=== PATIENT | female | born 1935 | race Caucasian/White ===

== ENCOUNTER → 2016-10-01 | Outpatient (CLI) | payer OTHER, MEDICARE ==
[~2016-10-01] VITALS: Ht 160 cm; Wt 69.3 kg
[~2016-10-01] MED LIST: ASPIRIN EC81 M1 PO; BYSTOLIC 5 MG5 M1 PO; CALCIUM 600 +1 EAC5 PO; CALCIUM PO; CELEBREX 200 M200 MG PO; CENTRUM COMPLE1 EACH PO; DIOVAN PO; DIOVAN40 MG PO; GLUCOPHAGE500 MG PO; HCTZ PO; HYDROCHLOROTH12.5 MG PO; ISOSORBIDE DINI30 MG PO; LEVOTHYROXIN0.025 MG PO; LORAZEPAM 0.50.5 MG PO; METAMUCIL PAC1 UDPK1 PO; MOBIC7.5 MG PO; MULTIVITAMINS PO; MYLANTA 12 OZ355 M1 PO; NORCO 7.5-3251 EACH PO; OMEGA-31000 MG PO; OMEPRAZOLE 20 M20 M1 PO; OMEPRAZOLE20 M2 PO; OXYCODONE-ACET1 EACH PO; OXYCONTIN10 MG PO; PREDNISONE 20 M20 M1 PO; PROAIR HFA8.5 GM; RANEXA500 MG PO; RECLAST 55 MG/100 M IV; SERTRALINE HCL50 MG PO; SINGULAIR 10 MG10 M1 PO; TRAMADOL 50 MG50 MG PO; VITAMIN D1000 UNI1 PO; ZOCOR 20 MG TAB20 M1 PO; ZOCOR20 MG PO; ZOLOFT50 MG PO
--- NOTE | ~2016-10-01 | HPC ---
[facility] [place] [address] PAIN MANAGEMENT CONSULTATION Name: MIGUELRACHEL LARA CARLA Room #: REG ANA ROSA Flores#: [id number] Admission: 10/01/16 Attend Phys: Sidney Brothers DO Discharge: Date of : 37 Report #: [id number] THIS REPORT FOR: //name// CC: Josseline Brothers The patient is a very pleasant 81-year-old female, last seen in the pain clinic 05/13/2016. The patient was given a caudal epidural injection at that time. She has symptomatic lumbar radiculopathy secondary to spinal stenosis. Prior injection in February given her 50% relief, last injection similarly gave the patient 50+ percent relief for 5 months, pain has gradually begun to recur, noting pain is in the mid back, bilateral hips, chronic, sharp, aching, rates it as a 7/10, exacerbated with walking or standing. PHYSICAL EXAMINATION: Shows a 81-year-old female, BMI is 27.1 kg/m2. Vital signs stable as noted in the EMR. Rises from chair using armrest, moderately antalgic gait. Lumbar flexion exacerbates pain. Lower extremity strength diminished, but symmetric. History of neurogenic claudication. Reviewed MRI findings from 08/21/2015, noting progression lumbar spondylosis since 2004, grade 1 subluxation of L4 on L5, [id number] stenosis with moderate right convex thoracolumbar curvature, small cyst noted at S2. ASSESSMENT: 1. 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 We talked about chronic pain issues and arthritic issues as well. The patient has pain with rotation of the left shoulder, passively and actively. Signs point to some degenerative joint disease in this level. We talked about possible shoulder joint injection if indicated clinically in 1 month. Recommend range of motion and core exercises. Continue medications unchanged including Meloxicam 7.5 one a day, tramadol p.r.n. for pain. 2. Symptomatic lumbar radiculopathy, status post decompressive laminectomy. PROCEDURE: Caudal epidural injection under fluoroscopy. PROCEDURE NOTE: After written informed consent was obtained, the patient was taken to the fluoroscopy suite and placed in prone position. After sterile prep and drape, skin wheal was raised. A 22-gauge epidural Tuohy needle was placed to the sacral hiatus into the caudal epidural space. Negative aspiration was accomplished. 1 mL of Omnipaque was injected, which showed spread within the sacral epidural space. This was followed with 80 mg of triamcinolone plus 5 mL of 0.5% preservative-free Xylocaine. Needle was removed, area was cleansed, [address] [address] PAIN MANAGEMENT CONSULTATION Name: RACHEL TORRES Room #: REG ANA ROSA Flroes#: [id number] Admission: 10/01/16 Attend Phys: Sidney Brothers DO Discharge: Date of : 37 Report #: [id number] Band-Aids applied. The patient was monitored for an appropriate period of time, discharged in good and stable condition. <ELECTRONICALLY SIGNED> By: Sidney Brothers DO 10/04/16 0917 1455 28 Sidney Brothers DO /nt
[2016-10-01 10:15] VITALS: BP 145/69
== END ==
LOC: PAIN 07:03
DX: M54.16 Radiculopathy, lumbar region (principal); M48.06 Spinal stenosis, lumbar region; M19.012 Primary osteoarthritis, left shoulder; M96.1 Postlaminectomy syndrome, not elsewhere classified

== ENCOUNTER → 2016-12-16 | Outpatient (CLI) | payer OTHER, MEDICARE ==
[~2016-12-16] VITALS: Ht 160 cm; Wt 69.4 kg
--- NOTE | ~2016-12-16 | HPC ---
[facility] [place] [place] [address] PAIN MANAGEMENT CONSULTATION Name: MIGUELRACHEL LARA CARLA Room #: REG Sea Flores#: [id number] Admission: 12/16/16 Attend Phys: Sidney Brothers DO Discharge: Date of : 37 Report #: [id number] THIS REPORT FOR: //name// CC: Josseilne Brothers HISTORY OF PRESENT ILLNESS: The patient is a very pleasant 81-year-old female being treated for component of lumbar radiculopathy secondary to spinal stenosis. She has prior been treated for some DJD of the left shoulder. She has done well with occasional caudal epidural injections; she had had a total of 3 caudal injections in 2015, September, February and April. She did have a caudal injection 10/01/2016 about 2-1/2 months ago, always with greater than 60% improvement of baseline radicular pain. Reviewed her MRI from 08/21/2015, notes progression of spondylosis from 2005 grade 1 subluxation of L4 and L5 with moderate to severe stenosis at this level, moderate right convex thoracolumbar curvature is seen. 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 She returns to pain clinic today noting pain has recurred, primarily low back, right buttock and leg. She uses a cane for balance. She notes pain is exacerbated with walking even sitting to do her quilting. PHYSICAL EXAMINATION: GENERAL: Shows a 81-year-old female, BMI is 27.1 kilograms per meter squared. Vital signs are stable as noted on the EMR. Does have objective decreased strength in the right leg, the hip flexion, lower extremity extension even plantar flexion about 3/5, left leg is a little bit stronger at 4/5. ASSESSMENT: Symptomatic lumbar radiculopathy secondary to spinal stenosis in a patient with prior history of left shoulder DJD, though the range of motion is actually improving a little bit here. We elected to do repeat caudal injection under fluoroscopy today. Continue activity as able. Continue using cane for balance, rare tramadol for pain. ASSESSMENT: Symptomatic lumbar radiculopathy secondary to spinal stenosis. PROCEDURE NOTE: Caudal epidural injection under fluoroscopy. PROCEDURE: After written informed consent was obtained, the patient taken to fluoroscopy suite, placed in the prone position. After sterile prep and drape, skin wheal was raised. A 22-gauge stylet needle was placed through the sacral hiatus into the caudal epidural space. Negative aspiration was accomplished. A 1 mL of Omnipaque was injected, which showed spread within the caudal space. This was followed with 80 mg triamcinolone plus 4 mL of 0.5% preservative-free lidocaine. Needle was removed. The area was cleansed, Band-Aids applied. The [address] [address] PAIN MANAGEMENT CONSULTATION Name: RACHEL TORRES CARLA Room #: REG CLSea Flores#: [id number] Admission: 12/16/16 Attend Phys: Sidney Brothers DO Discharge: Date of : 37 Report #: [id number] patient was allowed to ambulate to recovery room, monitored for an appropriate period of time, discharged in good and stable condition. <ELECTRONICALLY SIGNED> By: Sidney Brothers DO 12/17/16 1138 0708 1025 Sidney Brothers DO /nt
[2016-12-16 13:46] VITALS: BP 155/62
== END ==
LOC: PAIN 07:13
DX: M54.16 Radiculopathy, lumbar region (principal); M48.06 Spinal stenosis, lumbar region; M19.012 Primary osteoarthritis, left shoulder; I10 Essential (primary) hypertension

== ENCOUNTER → 2017-03-14 | Outpatient (CLI) | payer OTHER, MEDICARE ==
[~2017-03-14] VITALS: Ht 160 cm; Wt 71.3 kg
--- NOTE | ~2017-03-14 | HPC ---
[facility] [address] [place] [address] PAIN MANAGEMENT CONSULTATION Name: RACHEL TORRES Room #: REG ANA ROSA Flores#: [id number] Admission: 03/14/17 Attend Phys: Sidney Brothers DO Discharge: Date of : 37 Report #: [id number] THIS REPORT FOR: //name// CC: Josseline Brothers DATE OF SERVICE: 03/14/2017 The patient is a very pleasant 81-year-old female typically treated for lumbar radiculopathy secondary to spinal stenosis, component of DJD, left shoulder. She uses tramadol 50 mg 0-4 a day. She has done well with occasional caudal epidural injections, last one being in November of this year. This afforded some 100% relief for 2 months. Gradually, pain has begun to recur. She denies antecedent trauma and overuse. She notes 3 weeks ago, she did fall putting away some winter sweaters. She states around the home, she typically uses a cane. We talked about balance exercises today and I showed her some exercises she can do at counter today. She did have a small laceration in the anterior right abdul. This appears to be well dressed and no signs of infection. Ongoing back and radicular pain. Lumbar flexion is limited. Positive straight leg raise bilaterally. ASSESSMENT: Symptomatic lumbar radiculopathy secondary to spinal stenosis in patient with facet degenerative changes and anterolisthesis at L4-L5 causing stenosis down to about 0.71 cm. She has done well with caudal epidural injections in the past for chronic pain concerns. RECOMMENDATIONS: 1. Balance exercises as discussed above. 2. Renew tramadol 50 mg 1 tablet up to 4 times a day, limit 120 tablets, 2 refills. 3. Caudal epidural injection under fluoroscopy today. PROCEDURE NOTE: After written informed consent was obtained, the patient was taken to the fluoroscopy suite and placed in prone position. After sterile prep and drape, skin wheal with Xylocaine was raised. A 22-gauge stylet needle was placed to the sacral hiatus in the caudal epidural space. Negative aspiration was accomplished. 1 mL of Omnipaque was injected, which showed spread within the sacral space. This was followed with 60 mg triamcinolone plus 4 mL of 0.5% preservative-free Xylocaine. Needle was removed. The area was cleansed, Band-Aids applied. The patient monitored for an appropriate period of time, discharged in good and stable condition. <ELECTRONICALLY SIGNED> By: Sidney Brothers DO 03/18/17 1606 1549 11 Sidney Brothers DO /nt
[2017-03-14 13:34] VITALS: BP 140/63
== END | disposition home or self-care (01) ==
LOC: PAIN 06:56
DX: M54.16 Radiculopathy, lumbar region (principal); M48.06 Spinal stenosis, lumbar region; M19.012 Primary osteoarthritis, left shoulder; M43.16 Spondylolisthesis, lumbar region

== ENCOUNTER → 2017-04-29 | Outpatient (CLI) | payer OTHER, MEDICARE ==
[~2017-04-29] VITALS: Ht 160 cm; Wt 69.9 kg
--- NOTE | ~2017-04-29 | HPC ---
[facility] [place] [address] [place] [address] PAIN MANAGEMENT CONSULTATION Name: RACHEL TORRESAINE Room #: REG ANA ROSA Flores#: [id number] Admission: 04/29/17 Attend Phys: Sidney Brothers DO Discharge: Date of : 37 Report #: [id number] THIS REPORT FOR: //name// CC: Josseline Brothers DATE OF SERVICE: 04/29/2017 The patient is a 81-year-old female typically treated for lumbar radiculopathy secondary to spinal stenosis, history of DJD of the left shoulder. Last seen in the pain clinic 03/14/2017. Did a caudal epidural injection at that time. Prior had done a caudal injection back in November. She has done well with occasional caudal injections for lumbar radicular symptoms, primarily right radicular. She uses tramadol on a p.r.n. basis. Returns to pain clinic today noting the last injection afforded relief, though not as good as she usually gets, this time only about 60%. She does note an acute change in symptoms with pain primarily in the right low back and buttock area. She has been using a cane for balance. She rises from a chair using the armrest, markedly antalgic gait. Very tender over the right SI. Lower extremity strength is generally symmetric, though diminished 3-4/5, but again equal bilaterally. Straight leg raise is negative. Patellar and Achilles reflexes are diminished, but preserved. Very tender over the right SI with a positive Brian test, positive Gaenslen test. ASSESSMENT: Symptomatic sacroiliac joint dysfunction by clinical exam today, history of lumbar radiculopathy secondary to spinal stenosis and degenerative joint disease, left shoulder. RECOMMENDATIONS: 1. Continue tramadol p.r.n., the patient does not require renewal of prescription. 2. Right SI joint injection under fluoroscopy today. 3. Follow up in 1 week for reevaluation and consideration for repeat caudal injection if radicular symptoms are problematic at that time. Thank you for allowing me to participate in the patient's care. ASSESSMENT: Symptomatic right sacroiliac joint dysfunction, lumbosacral spondylosis. PROCEDURE: After written informed consent was obtained, the patient was taken to the fluoroscopy suite and placed in prone position. After sterile prep and drape, skin wheal was raised. A 22-gauge stylet needle was placed to contact the inferior aspect of the right SI joint. Negative aspiration was accomplished. 0.5 mL of Omnipaque was injected, which [place] [address] PAIN MANAGEMENT CONSULTATION Name: RACHEL TORRES CARLA Room #: REG Sae Flores#: [id number] Admission: 04/29/17 Attend Phys: Sidney Brothers DO Discharge: Date of : 37 Report #: [id number] joints followed with 40 mg triamcinolone plus 2 mL of 0.5% preservative-free bupivacaine. Needle was removed, area was cleansed, Band-Aids applied. The patient monitored for an appropriate period of time, discharged in good and stable condition. <ELECTRONICALLY SIGNED> By: Sidney Brothers DO 05/02/17 0908 0952 1033 Sidney Brothers DO /nt
[2017-04-29 09:19] VITALS: BP 137/61
== END | disposition home or self-care (01) ==
LOC: PAIN 07:13
DX: M53.3 Sacrococcygeal disorders, not elsewhere classified (principal); M54.16 Radiculopathy, lumbar region; M48.06 Spinal stenosis, lumbar region; M19.012 Primary osteoarthritis, left shoulder; M47.817 Spondylosis without myelopathy or radiculopathy, lumbosacral region

== ENCOUNTER → 2017-05-30 | Outpatient (CLI) | payer OTHER, MEDICARE ==
[~2017-05-30] VITALS: Ht 160 cm; Wt 68.4 kg
[~2017-05-30] MED LIST changes: +TIZANIDINE HCL 22 M1 PO
--- NOTE | ~2017-05-30 | HPC ---
[facility] [address] [place] [address] PAIN MANAGEMENT CONSULTATION Name: MIGUELRACHEL LARA CARLA Room #: REG ANA ROSA Flores#: [id number] Admission: 05/30/17 Attend Phys: Sidney Brothers DO Discharge: Date of : 37 Report #: [id number] THIS REPORT FOR: //name// CC: Josseline Brothers HISTORY OF PRESENT ILLNESS: The patient is a very pleasant 82-year-old female typically treated for lumbar radiculopathy secondary to spinal stenosis, component of SI mediated pain, in fact last visit, we did a right SI joint injection 04/29/2017. She prior had a caudal injection back in February. Returns to pain clinic today noting the SI injection afforded good and ongoing relief upto 80%. She actually presents today with a new complaint. The patient notes she has developed pain in the right side of her neck. It is not related to trauma or specific use. Pain actually has been present for many years, but seems to be getting worse the past several weeks, pain in the right side of the neck, posterior occiput in the shoulder. Exacerbated with moving her head or turning her head to the right. She had tried ice and medications with partial efficacy. Again, she notes the axial back chronic lumbar radicular pain and right SI mediated pain are fairly nominal at this point. Rates her overall pain score of 4 on VAS. PHYSICAL EXAMINATION: GENERAL: Shows 82-year-old female. VITAL SIGNS: BMI is 26.7 kg per meter squared. Stable as noted in the EMR. NEUROLOGIC: Cranial nerves 2-12 are grossly intact. HEENT: Pupils equal, reactive to light and accommodation. Extraocular muscles are intact. There is no nystagmus. Lateral gaze deviation. NECK: Cervical range of motion is limited in all plains specifically sidebending and rotating to the right. Thyroid unremarkable. MUSCULOSKELETAL: Upper extremity strength is generally preserved right abduction exacerbates pain. Trigger point noted in the right splenius capitis, right trapezius, right posterior occipital area and upper thoracic paravertebral muscles. ASSESSMENT: 1. Lumbar radiculopathy secondary to spinal stenosis and the right SI mediated pain all symptoms relatively quiescent at present. 2. New complaint of myofascial pain component of greater occipital neuralgia. RECOMMENDATION: Trigger points today, ice to the area. The patient had prior been to physical therapy for range of motion exercises request that she resume those exercises later this week. Follow up in 2 to 3 weeks for reevaluation. Consider facet joint injection if indicated clinically (right C2-C3). [place] [address] PAIN MANAGEMENT CONSULTATION Name: MIGUELRACHEL LARA CARLA Room #: REG Sea Flores#: [id number] Admission: 05/30/17 Attend Phys: Sidney Brothers DO Discharge: Date of : 37 Report #: [id number] PROCEDURE: After written informed consent was obtained, the patient was taken and placed in the prone position. Skin overlying 4 discrete trigger points (right trapezius, right upper thoracic paravertebral muscles, right splenius capitis and inferior posterior occipital over the greater occipital nerve were identified). Using a 25-gauge needle, 40 mg triamcinolone plus 50:50 mix of 5 mL 0.5% preservative-free bupivacaine plus 5 mL of 1.5% preservative-free Xylocaine with 1:200,000 epinephrine was injected equivalent to 4 discrete trigger points. All needles removed. The area was cleansed, Band-Aids applied. The patient was told to use ice to the area today. Again, resume range of motion, physical therapy midweek. Follow up in 2 to 3 weeks for reevaluation. Cancel if doing well. <ELECTRONICALLY SIGNED> By: Sidney Brothers DO 06/01/17 0811 1226 0150 Sidney Brothers DO /nt
[2017-05-30 10:36] VITALS: BP 142/76
== END | disposition home or self-care (01) ==
LOC: PAIN 05-12 12:59
DX: M79.1 Myalgia (principal); M54.81 Occipital neuralgia; G89.29 Other chronic pain; M54.16 Radiculopathy, lumbar region; M48.06 Spinal stenosis, lumbar region; M53.3 Sacrococcygeal disorders, not elsewhere classified; Z88.0 Allergy status to penicillin; Z79.82 Long term (current) use of aspirin; Z79.899 Other long term (current) drug therapy

== ENCOUNTER → 2017-10-17 | Outpatient (CLI) | payer OTHER, MEDICARE ==
[~2017-10-17] VITALS: Ht 160 cm; Wt 66.2 kg
[~2017-10-17] MED LIST changes: +LOSARTAN POTASS50 MG PO; +NORVASC5 MG PO; +VOLTAREN GEL 1100 G1 TOP
--- NOTE | ~2017-10-17 | HPC ---
[facility] [address] [place] [address] PAIN MANAGEMENT CONSULTATION Name: MIGUELRACHEL LARA CARLA Room #: REG ANA ROSA Flores#: [id number] Admission: 10/17/17 Attend Phys: Sidney Brothers DO Discharge: Date of : 37 Report #: [id number] THIS REPORT FOR: //name// CC: Josseline Brothers The patient is a delightful 82-year-old female. She was prior seen back in July. She had ongoing cervical spondylosis, greater occipital neuralgia and component of axial back pain. I had given her a right C2-C3, C3-C4, C4-C5 as well as a left C2-C3 facet joint injection with excellent improvement of pain for a number of weeks. Pain began to recur. In the interval since I saw her, she got very sick over the holidays and was found to have acute diverticulitis. I had a diverting colostomy (planning on reversing this on 11/24/2017). Returns to pain clinic today noting her neck tends to be problematic. She rates her pain a 7 on a VAS. She has degenerative facet disease, but no true arthritis. BMI is 25.9 kg/m2. Vital signs are generally stable. She has not fallen in the last 3 months. Does use a cane. Denies opiate medications with any regularity. Tenderness in the cervical spine is somewhat frustrated and depressed by return of events with the GI issues. She is looking forward to having her ostomy reversed. With ongoing pain in her neck, she states she simply cannot sleep as it is uncomfortable and is getting quite frustrated. PHYSICAL EXAMINATION: Being unchanged. DIAGNOSES: Cervical spondylosis. We have elected to move forward with repeat cervical facet joint injection under fluoroscopy today. We will plan on seeing the patient back sometime after her colostomy reversal. We may consider medial branch dorsal rami diagnostic block and RFL, but today, we are simply trying to mitigate pain and to give the patient some comfort pending her ostomy reversal. ASSESSMENT: Symptomatic cervical spondylosis. PROCEDURE: Four level facet joint injection under fluoroscopy (left and right C2-C3, right C3-C4 and C4-C5). PROCEDURE NOTE: After informed consent was obtained, the patient was taken to the fluoroscopy suite and placed in prone position. After sterile prep and drape, skin was raised. A 22-gauge stylet needle was placed to contact the posterior aspect of the left C2-C3 and a right C2-C3. In the middle of the lateral mass, third and fourth needles were placed corresponding to the right C3-C4 and right C4-C5 again in the middle of the lateral mass. AP and lateral projections showed good needle placement approximately in the posterior aspect of the facet joint. After negative aspiration, 1 mg of Decadron plus 1 mL of 0.5% preservative-free bupivacaine was injected at all 4 needles. All 4 needles were removed. The area was cleansed. Band-Aids applied[place] [address] PAIN MANAGEMENT CONSULTATION Name: RACHEL TORRES Room #: REG ANA ROSA Flores#: [id number] Admission: 10/17/17 Attend Phys: Sidney Brothers DO Discharge: Date of : 37 Report #: [id number] monitored for an appropriate period of time, discharged in good and stable condition. Follow up is p.r.n. <ELECTRONICALLY SIGNED> By: Sidney Brothers DO 10/19/17 0811 1537 0437 Sidney Brothers DO /nt
[2017-10-17 13:36] VITALS: BP 142/62
== END | disposition home or self-care (01) ==
LOC: PAIN 07:06
DX: M47.812 Spondylosis without myelopathy or radiculopathy, cervical region (principal); M54.81 Occipital neuralgia; Z88.0 Allergy status to penicillin; Z79.82 Long term (current) use of aspirin; Z79.899 Other long term (current) drug therapy; Z98.890 Other specified postprocedural states

== ENCOUNTER → 2018-01-02 | Outpatient (CLI) | payer OTHER, MEDICARE ==
[~2018-01-02] VITALS: Ht 160 cm; Wt 64.0 kg
--- NOTE | ~2018-01-02 | HPC ---
[facility] [address] [place] [address] PAIN MANAGEMENT CONSULTATION Name: RACHEL TORRES Room #: REG ANA ROSA Flores#: [id number] Admission: 01/02/18 Attend Phys: Sidney Brothers DO Discharge: Date of : 37 Report #: [id number] THIS REPORT FOR: //name// CC: Josseline Brothers DATE OF SERVICE: 01/02/2018 The patient is a delightful 82-year-old female being treated for cervical spondylosis, greater occipital neuralgia component of axial back pain. Last visit 10/17/2017, she was having ongoing cervical spondylotic pain primarily C2-C3 bilateral with a component of right-sided pain at C3-C4 and C4-C5. Given that she had had a recent bowel surgery, had had diverting colostomy placed over the holidays due to significant diverticulitis. She was frustrated. She was planning on having procedure reversed 11/24/2017 to proceed. I performed facet joint injections to help with transient relief. She had excellent relief, pain has begun to recur. She did have the ostomy taken down 11/24/2017. She is very pleased with that result though notes she still feels weak, very tender cervical spine with cervical rotation and side bending. The pain is worse in the right than left. ASSESSMENT: Symptomatic cervical spondylosis by clinical exam and history. RECOMMENDATION: After discussion with the patient today, we would like to move forward with medial branch dorsal rami diagnostics, left C3 and right C3, C4, C5. If this affords transient relief, we will consider moving forward with RFL on the right side. The patient was told to look for signs of vertigo, which can occur with bilateral C3 nerve block. ASSESSMENT: Symptomatic cervical spondylosis without myelopathy. PROCEDURE: Left C3 medial branch dorsal rami, right C3 ,C4 and C5 medial branch dorsal rami diagnostic blocks. PROCEDURE NOTE: After written informed consent was obtained, the patient was taken to fluoroscopy suite, placed in prone position. After sterile prep and drape, skin wheal was raised. A 22-gauge stylet needle was placed to contact superior articular process of C3 adjacent to the C3 medial branch dorsal rami nerve medially inferior to the C2-C3 cervical facet. The second needle was placed on the right side in mirror procedure. Third and fourth needles were placed at the superior articular process of C4 and C5, adjacent to the medial branch dorsal rami C4 and C5. AP and lateral projections showed good needle placement. 1 mL of 50:50 mix 0.5% preservative-free bupivacaine with 1.5% preservative-free Xylocaine with 1:200,000 epinephrine. All four needles were then removed, area was cleansed, Band-Aids applied. The patient monitored for an appropriate period of time, discharged in good and stable condition, noting [address] [address] PAIN MANAGEMENT CONSULTATION Name: MIGUELKIAN LARAKEILY AGUIRRE Room #: REG [facility] Sandra#: [id number] Admission: 01/02/18 Attend Phys: Sidney Brothers DO Discharge: Date of : 37 Report #: [id number] dramatic improvement of baseline pain, in fact pain had been 7 on VAS, was down to 1 on discharge. We plan on moving forward with radiofrequency neurolysis on the right side C3, C4 and C5 medial branch dorsal rami. <ELECTRONICALLY SIGNED> By: Sidney Brothers DO 01/04/18 0819 1647 1941 Sidney Brothers DO /nt
[2018-01-02 14:39] VITALS: BP 135/51
== END | disposition home or self-care (01) ==
LOC: PAIN 06:49
DX: M47.812 Spondylosis without myelopathy or radiculopathy, cervical region (principal)

== ENCOUNTER → 2018-01-09 | Outpatient (CLI) | payer OTHER, MEDICARE ==
[~2018-01-09] VITALS: Ht 162.6 cm; Wt 64.4 kg
--- NOTE | ~2018-01-09 | HPC ---
[facility] [place] [address] PAIN MANAGEMENT CONSULTATION Name: MIGUELJANERACHELKEILY AGUIRRE Room #: REG Sea Flores#: [id number] Admission: 01/09/18 Attend Phys: Sidney Brothers DO Discharge: Date of : 37 Report #: [id number] THIS REPORT FOR: //name// CC: Josseline Brothers DATE OF SERVICE: 01/09/2018 The patient is a very pleasant 82-year-old female being treated for cervical spondylosis, history of axial back pain and occipital neuralgia. She was seen 01/02/2018 for bilateral C2-C3 medial branch dorsal rami diagnostic block and right C2 ,C3 and C4 medial branch dorsal rami diagnostic block. The patient returns to pain clinic today noting 60% improvement following the procedure for several hours though the pain has recurred. Pain is primarily right neck, posterior occiput. She was moved forward with cervical medial branch neurolysis as discussed at prior visit. ASSESSMENT: Symptomatic cervical spondylosis, right side. PROCEDURE: Medial branch dorsal rami neurolysis, right C2, C3 and C4. PROCEDURE NOTE: After written informed consent was obtained, the patient was taken to the fluoroscopy suite and placed in prone position. After sterile prep and drape, skin wheal was raised. A 10 mm RF cannula was placed to contact superior articulate process of C2, C3 and C4. Adjacent to the C2, C3 and C4 medial branch dorsal rami nerves, AP and lateral projections showed good needle placement. Initial impedance motor and sensory testing was accomplished, those numbers are on the chart. Each needle was injected with 1 mL of 1% preservative-free Xylocaine and heated to 80 degrees centigrade for 90 seconds. Each needle was then injected with 2.66 mg of Decadron plus 1 mL of 0.5% preservative-free bupivacaine. All 3 needles were removed, area was cleansed, Band-Aids applied. Fluoroscopy time was under 30 seconds. Monitored for an appropriate period of time, discharged in good and stable condition. Follow up in 2 weeks for reevaluation, cancel if doing well. <ELECTRONICALLY SIGNED> By: Sidney Brothers DO 01/12/18 0927 [id number] 1959 Sidney Brothers DO /nt
[2018-01-09 13:31] VITALS: BP 134/56
== END | disposition home or self-care (01) ==
LOC: PAIN 06:52
DX: M47.812 Spondylosis without myelopathy or radiculopathy, cervical region (principal); G89.29 Other chronic pain; Z88.0 Allergy status to penicillin; Z88.8 Allergy status to other drugs, medicaments and biological substances; Z79.899 Other long term (current) drug therapy; Z79.82 Long term (current) use of aspirin

== ENCOUNTER → 2018-01-30 | Outpatient (CLI) | payer OTHER, MEDICARE ==
[~2018-01-30] VITALS: Ht 162.6 cm; Wt 64.9 kg
--- NOTE | ~2018-01-30 | HPC ---
[facility] [address] [place] [address] PAIN MANAGEMENT CONSULTATION Name: RACHEL TORRES Room #: REG Sea Flores#: [id number] Admission: 01/30/18 Attend Phys: Sidney Brothers DO Discharge: Date of : 37 Report #: [id number] THIS REPORT FOR: //name// CC: Josseline Brothers The patient is a very pleasant 82-year-old female being treated for cervical spondylosis, prior history of axial back pain and greater occipital neuralgia. Progressed to RFL right C2, C3 and C4 medial branch dorsal rami on 01/09/2018. Prior diagnostic studies afforded good relief including facet joint injections, C2-C3 and C3-C4 back in September, which gave her several months of good relief. The patient returns to the pain clinic today noting suboptimal response to the RFL. Pain is in the right side of the neck, exacerbated with cervical rotation and side bending. I reviewed diagnostic findings, which are unchanged. ASSESSMENT: Symptomatic cervical spondylosis without myelopathy. RECOMMENDATIONS: After long discussion with the patient today, I would like to proceed with right C2-C3 and C3-C4 facet joint injection under fluoroscopy. We will use low dose (2 mg) Decadron and 0.5% preservative free bupivacaine and follow simply as needed. PROCEDURE NOTE: Right C2-C3 and C3-C4 facet joint injection under fluoroscopy. PROCEDURE: After written informed consent was obtained, the patient was taken to the fluoroscopy suite, placed in the prone position. After sterile prep and drape, skin wheal was raised. A 22-gauge stylet needle was placed to contact the inferior aspect of the right C2-C3 and right C3-C4 facets in the middle of the lateral mass on AP projection and a posterior aspect of the joint on lateral projection. Negative aspiration was accomplished. A 2 mg of Decadron plus 1 mL of 0.5% preservative free bupivacaine was injected into and around the joint. Needle was removed, the area was cleansed and Band-Aid was applied. The patient monitored for an appropriate period of time, discharged in good and stable condition, noting incremental improvement in baseline pain. <ELECTRONICALLY SIGNED> By: Sidney Brothers DO 02/02/18 0811 [id number] Sidney Brothers DO /nt
[2018-01-30 13:31] VITALS: BP 127/99
== END | disposition home or self-care (01) ==
LOC: PAIN 07:26
DX: M47.812 Spondylosis without myelopathy or radiculopathy, cervical region (principal); G89.29 Other chronic pain; Z98.890 Other specified postprocedural states; Z88.0 Allergy status to penicillin; Z88.8 Allergy status to other drugs, medicaments and biological substances; Z79.82 Long term (current) use of aspirin; Z79.899 Other long term (current) drug therapy

== ENCOUNTER → 2019-02-27 | Outpatient (CLI) | payer OTHER, MEDICARE ==
[~2019-02-27] VITALS: Ht 162.6 cm; Wt 70.9 kg
--- NOTE | ~2019-02-27 | HPC ---
[facility] [address] [place] [address] PAIN MANAGEMENT CONSULTATION Name: RACHEL TORRES [facility] [id number] Admission: 02/27/19 ������������������ Attend Phys: Raleigh Brothers DO Discharge: ������������������ Date of : 37 Report #: [id number] THIS REPORT FOR: //name// CC: Raleigh Tan MD DATE OF SERVICE: 02/27/2019 REFERRING PHYSICIAN: Josseline Tan MD. CHIEF COMPLAINT: Neck pain. HISTORY OF PRESENT ILLNESS: As you know, the patient is a very pleasant 83-year-old female who returns today in followup visit with recurrent neck pain. The patient apparently underwent radiofrequency lesioning of the right C2, C3, and C4 medial branch nerves on 01/09/2018 with good and prolonged efficacy. She was seen in followup visit where she underwent right C2-C3, C3-C4 facet injections under fluoroscopic guidance, which provided the patient with 80% improvement in overall pain that is ongoing. Unfortunately, her symptoms have begun to return. She returns today in followup visit with pain level of 8-9/10. She denies injury, trauma or any changes in medical history since our last visit. She returns requesting refill on medications and she does wish to be evaluated further for possible intra-articular facet injections. ALLERGIES: NONSTEROIDAL ANTI-INFLAMMATORIES, PENICILLIN, AMOXICILLIN. CURRENT MEDICATIONS: Amlodipine 5 mg once a day, tramadol 50 mg 4 times a day, losartan 50 mg once a day, Voltaren gel apply topically up to 4 times a day 4 inches each application, tizanidine 2 mg p.o. q. 8 hours p.r.n. muscle spasms, folic acid 1 tab per day, albuterol 2 puffs q. 4 hours p.r.n., simvastatin 20 mg once a day, sertraline 50 mg once a day, Bystolic 5 mg once a day, metformin 500 mg t.i.d., aspirin 81 mg per day, omega-3 fish oil 1200 mg once a day, cholecalciferol 1000 units once a day, omeprazole 20 mg once a day, Ranexa 500 mg once a day. SOCIAL HISTORY: The patient denies tobacco, alcohol or IV illicit drug use. She is retired, retired years ago, unaccompanied today. IMAGING: No new imaging available. PQRS: The patient has known osteoarthritic changes of the cervical spine, lumbar spine. No rheumatoid arthritis. She is placing pain intensity today 5-6/10. She is not a fall risk, has not had a fall in the last 3 months. She is not on blood thinners, but is treated for hypertension. She is on chronic opioids, but has a low risk for opioid addiction. [place] [address] PAIN MANAGEMENT CONSULTATION Name: RACHEL TORRES [facility] [id number] Admission: 02/27/19 ������������������ Attend Phys: Raleigh Brothers DO Discharge: ������������������ Date of : 37 Report #: [id number] assessment tool at 35/70 indicating moderate interference of daily activities secondary to pain. PHYSICAL EXAMINATION: VITAL SIGNS: Blood pressure 160/63, pulse 60, respiratory rate 16 and unlabored. The patient is 97% on room air. Height 5 feet 4 inches tall, weight 156.4 pounds, BMI calculated 26.8. GENERAL: Well-developed, well-nourished, well-hydrated 83-year-old female appearing her stated age, placing current pain score anywhere from 8-9/10. HEENT: Normocephalic, atraumatic. Pupils are equal, round, reactive to light. Extraocular muscles are intact. Speech fluent. The patient deemed an excellent historian. EXTREMITIES: Show no clubbing, no cyanosis, and no edema. MUSCULOSKELETAL: There is palpatory tenderness noted over the right cervical spine directly correlating to the facet area distribution. Spurling's test is negative. Cervical provocation testing is met with increasing pain with lateral flexion to the right, rotation to the right. There is moderate restriction of motion. Upper extremity strength appears equal and symmetrical. Muscle bulk and tone equal and symmetrical, deconditioning noted of the upper extremity strength. Deep tendon reflexes are symmetrical at biceps, brachialis and triceps 1+/4. ASSESSMENT: 1. Cervical facet syndrome. 2. Cervical spondylosis without radiculopathy. 3. Cervicalgia. 4. Chronic intractable pain. PLAN: 1. The patient returns today in followup visit having indicated a slow and progressive return of symptoms from previous intra-articular facet injections provided by Dr. Sidney Brothers. This in conjunction with medial branch radiofrequency lesioning has been quite beneficial. She returns requesting refill on medications and to establish an appointment to undergo intra-articular facet injections. We had a long discussion about these injections today. We recommend the patient stick with a single position. She was advised to follow up with Dr. Cobos. We recommend that she do so. Dr. Cobos has a very good track record with cervical facet injections and does very well with the procedures. She also continues to perform radiofrequency lesioning of the cervical medial branch nerves, which I no longer perform. The patient will be following up with Dr. Cobos for injections. 2. We have agreed to provide the patient a refill on medications. The following medications were provided in prescription form today. We gave the patient Voltaren gel, tizanidine and tramadol. The prescriptions are as follows. 3. We reviewed the fact that opiate medications are being used to provide [facility] [address] [place] [address] PAIN MANAGEMENT CONSULTATION Name: MIGUELRACHEL LARA CARLA Room #: REG [facility] Sandra#: [id number] Admission: 02/27/19 ������������������ Attend Phys: Raleigh Brothers DO Discharge: ������������������ Date of : 37 Report #: [id number] analgesia adequate to support activities of daily living, not attempting to achieve a specific pain score on the 0-10 Visual Analog Scale. The current opiate medications are providing sufficient analgesia to allow the patient to participate in activities of daily living. The patient is not exhibiting any aberrant behavior suggestive of drug diversion. The patient is not having any adverse reactions to medications. The patient is not suffering from daytime somnolence or mental acuity changes. The patient is managing opiate-induced constipation with appropriate [id number]-[id number] agents and dietary considerations. The patient was counseled on concern for caution with operating a motor vehicle while using opiate medications. A physical exam was performed and the patient's functional status was evaluated. All patients with back pain were advised against the bed rest greater than 4 days and were advised to return to normal activities. Pain score assessment was noted and the treatment plan was reviewed with the patient. All current medications, both prescribed and OTC were reviewed and reconciled on the electronic medical record. Tobacco screening was accomplished and smoking cessation was advised when indicated. BMI was noted and diet/exercise modification was recommended for all patients following outside normal parameters. I reviewed with the patient today their responsibilities to safeguard prescription medications, reviewed their responsibility to utilize medications only as prescribed by the physician. They are to seek and receive pain medications only from 1 physician group ( [facility]). They are to use 1 pharmacy and keep the clinic informed if they change pharmacies. Their responsibilities include making followup visits in a timely fashion and to avoid abrupt discontinuation of medication usage. Their responsibilities further include bringing their medications (bottles from the pharmacy with residual pills) to the visit for possible confirmation of pill counts and the patient understands it is their responsibility to submit to random drug screens to ensure both that the medications prescribed are present, and that no other controlled substances are present. All prescriptions provided today were generated electronically. 4. The patient was provided prescription of tramadol 50 mg dose 1 tab q.i.d., #120, one refill. This is a total of 2 months' worth of medication. 5. The patient was provided prescription of tizanidine 2 mg dose 1 tab p.o. q. 12 hours p.r.n. pain due to muscle spasming. She was given #60 tablets, 1 refill, 2 months' worth of medication. 6. The patient was provided refill prescription of Voltaren gel 100 gram tube, 2 tubes per month with 2 refills, 3 months' worth of medication. 7. The patient will be following up with Dr. Cobos for injection therapy. She was requested by Dr. Sidney Brothers to see Dr. Cobos. We have taken the liberty of providing the patient with medication management today, but I have advised the patient we recommend continuing to see Dr. Cobos to undergo these [address] [address] PAIN MANAGEMENT CONSULTATION Name: RACHEL TORRES Room #: REG ANA ROSA Flores#: [id number] Admission: 02/27/19 ������������������ Attend Phys: Raleigh Brothers DO Discharge: ������������������ Date of : 37 Report #: [id number] intra-articular facet injections, possible radiofrequency lesioning of the medial branch nerves of the cervical spine. ��������������������������������������������� ���������������������������������������� By: ��������������������������������������������� [id number] Raleigh Brothers DO /nt
[2019-02-27 11:02] VITALS: BP 160/63
--- NOTE | 2019-02-27 11:28 | NUR ---
Pain Clinic Assessment: 1. History of Osteoarthritis: all over History of Rheumatoid Arthritis: Not Applicable 2. Height: 5 ft. 4 in. 162.6 cm. Weight: 156.4 lb. oz. 70.943 kg. Patient's BMI: 26.8 3. Vital Signs: BP: 160/63 Pulse: 60 Resp: 16 Temp: 02 Sat: 97 ECG Mon: 4. Pain Intensity: 8-9 5. Fall Risk: Dizziness: N Needs help standing or walking: Y Fallen in the last 3 months: N Fall risk comments: 6. Patient on Blood Thinner: None 7. History of Hypertension: Y 8. Opioid Therapy greater than 6 weeks: N Opiate Contract Signed: 9. Risk Assessment Tool Provided: low risk 10. Functional Assessment Tool: 11. Recreational Drug Use: Never Drug Type: Tobacco Use: Never Smoker Tobacco Type: Amount or Packs/day: How Many Years: Alcohol Use: No Frequency: Quant:
== END ==
LOC: PAIN 06:41
DX: M47.812 Spondylosis without myelopathy or radiculopathy, cervical region (principal); M53.82 Other specified dorsopathies, cervical region; G89.29 Other chronic pain

== ENCOUNTER → 2019-03-01 | Outpatient (CLI) | payer OTHER, MEDICARE ==
[~2019-03-01] VITALS: Ht 162.6 cm; Wt 70.2 kg
--- NOTE | ~2019-03-01 | HPC ---
[facility] [place] [address] PAIN MANAGEMENT CONSULTATION Name: RACHEL TORRES Room #: REG ANA ROSA Sandra#: [id number] Admission: 03/01/19 ������������������ Attend Phys: uGy Cobos MD Discharge: ������������������ Date of : 37 Report #: [id number] THIS REPORT FOR: //name// CC: Guy Tan MD DATE OF SERVICE: 03/01/2019 Followup visit for cervicalgia with spondylosis. This is the first time I have seen the patient, who has been a long-standing patient of Dr. Sidney Brothers. He has provided her with excellent treatments for low back pain and more recently for cervical spondylosis. She has received both facet injections as well as facet medial branch nerve blocks followed by radiofrequency ablation. Her most recent treatment with Dr. Brothers, which was quite effective, was an injection of the bilateral C2-C3, C3-C4 and C4-C5 facet joints under fluoroscopic guidance. As a result of those injections, she had many months of pain relief. She is here today hoping that we can repeat the injections he provided so astutely. She reports to me today that her pain control is poor. Her pain score is elevated at 8-9/10. She has pain with all range of motion of her neck. All medications were reviewed and reconciled. Dr. Tan provides all her medications, although my partner, Dr. Raleigh Brothers saw her on 02/23/2019 and provided her with Voltaren gel, tizanidine and tramadol. She carefully safeguards these medications and understands the importance of keeping them under her own control. The only providers for her pain medication over the course of the last [address] Brothers and Dr[address] Tan. PHYSICAL EXAMINATION: GENERAL: She is a pleasant female. VITAL SIGNS: Five feet 4 inches, 154 pounds, BMI 26. Blood pressure 154/57, heart rate 63 and respirations 20. CHEST: Clear. CARDIAC: Rhythm is regular. MUSCULOSKELETAL: Examination of the cervical spine reveals marked range of motion restrictions, particularly in neck extension, rotation and lateral tilt. This reproduces a marked tenderness and discomfort, scoring at a 9/10 over the right side of the neck associated with the facet joints. There is local tenderness. There is no palpable mass noted. IMAGING DATA: X-rays of the cervical spine are available from our injections, but I do not have recent injections. Previous spot films of the clinic are certainly positive for marked cervical spondylitic changes bilaterally at the [address] [address] PAIN MANAGEMENT CONSULTATION Name: RACHEL TORRES Room #: REG [facility]#: [id number] Admission: 03/01/19 ������������������ Attend Phys: Guy Cobos MD Discharge: ������������������ Date of : 37 Report #: [id number] C2-C3 and C3-C4 joints. IMPRESSION: Cervical spondylosis on the right. RECOMMENDATIONS: Cervical facet injections, C3-C4 and C4-C5. The C2-C3 facet joint appears to be autofused on the right. DESCRIPTION OF PROCEDURE: She was taken to the fluoroscopic suite, placed prone and skin prepped with ChloraPrep. Skin was anesthetized over the C2-C3, then the C3-C4 facet joints. A 25-gauge needle was gently advanced into position using biplanar fluoroscopic views. After negative aspiration, I injected 0.25 mL of Omnipaque at each level, demonstrating extravascular spread of medicine along the facet joint capsule and lateral mass, some medication extending then into the facet joints at each level. This was then followed by 0.5 mL of 0.5% of 2 mg of Decadron at each level. She tolerated the procedure well. Pain was reduced in the recovery room prior to discharge by a modest amount, at a level of 7 and a followup visit is scheduled in the future on an as-needed basis. ��������������������������������������������� ���������������������������������������� By: ��������������������������������������������� [id number] Guy Cobos MD /nt
[2019-03-01 14:58] VITALS: BP 141/57
--- NOTE | 2019-03-01 15:23 | NUR ---
Pain Clinic Assessment: 1. History of Osteoarthritis: ALL OVER History of Rheumatoid Arthritis: Not Applicable 2. Height: 5 ft. 4 in. 162.6 cm. Weight: 154.8 lb. oz. 70.217 kg. Patient's BMI: 26.6 3. Vital Signs: BP: 141/57 Pulse: 63 Resp: 20 Temp: 02 Sat: 97 ECG Mon: 4. Pain Intensity: 8-9 5. Fall Risk: Dizziness: N Needs help standing or walking: Y Fallen in the last 3 months: N Fall risk comments: 6. Patient on Blood Thinner: None 7. History of Hypertension: Y 8. Opioid Therapy greater than 6 weeks: N Opiate Contract Signed: 9. Risk Assessment Tool Provided: low risk 10. Functional Assessment Tool: 11. Recreational Drug Use: Never Drug Type: Tobacco Use: Never Smoker Tobacco Type: Amount or Packs/day: How Many Years: Alcohol Use: No Frequency: Quant:
== END | disposition home or self-care (01) ==
LOC: PAIN 06:53
DX: M47.812 Spondylosis without myelopathy or radiculopathy, cervical region (principal); Z88.0 Allergy status to penicillin; Z88.8 Allergy status to other drugs, medicaments and biological substances; Z79.899 Other long term (current) drug therapy; Z79.82 Long term (current) use of aspirin

== ENCOUNTER → 2019-09-25 | Outpatient (CLI) | payer OTHER, MEDICARE ==
[~2019-09-25] VITALS: Ht 165.1 cm; Wt 69.9 kg
[~2019-09-25] MED LIST changes: +ARICEPT10 M1 PO; +MICROZIDE12.5 MG PO; +NAMENDA 10 MG T10 MG PO
[2019-09-25 12:55] VITALS: BP 164/67
--- NOTE | 2019-09-25 13:07 | NUR ---
Pain Clinic Assessment: 1. History of Osteoarthritis: ALL OVER History of Rheumatoid Arthritis: Not Applicable 2. Height: 5 ft. 5 in. 165.1 cm. Weight: 154.0 lb. oz. 69.854 kg. Patient's BMI: 25.6 3. Vital Signs: BP: 164/67 Pulse: 61 Resp: 20 Temp: 02 Sat: 98 ECG Mon: 4. Pain Intensity: 8 AT WORST 5. Fall Risk: Dizziness: N Needs help standing or walking: N Fallen in the last 3 months: N Fall risk comments: 6. Patient on Blood Thinner: None 7. History of Hypertension: Y 8. Opioid Therapy greater than 6 weeks: N Opiate Contract Signed: 9. Risk Assessment Tool Provided: low risk 10. Functional Assessment Tool: 11. Recreational Drug Use: Never Drug Type: Tobacco Use: Never Smoker Tobacco Type: Amount or Packs/day: How Many Years: Alcohol Use: No Frequency: Quant:
--- NOTE | 2019-09-26 12:54 | HPC ---
[facility] [address] [place] [address] PAIN MANAGEMENT CONSULTATION Name: RACHEL TORRES Room #: REG ANA ROSA Sandra#: [id number] Admission: 09/25/19 Attend Phys: Raleigh Brothers DO Discharge: Date of : 39 Report #: [id number] THIS REPORT FOR: //name// CC: Raleigh Tan MD DATE OF SERVICE: 09/25/2019 CHIEF COMPLAINT: Cervicalgia. HISTORY OF PRESENT ILLNESS: As you know, the patient is a pleasant 84-year-old female followed by my partner, Dr. Sidney Brothers for years starting in 2009 where she was followed for low back pain and cervicalgia. She is returning today in followup visit, requesting refill of tramadol therapy. The patient recently has received a diagnosis of progressive dementia and she is not taking Aricept and Namenda. She returns today in followup visit stating that they had discussed her case with her PCP and they have advised the patient that the primary care would not be providing medications initiated by other physicians. Interestingly, we did not initiate this medication with the patient. She has been on this medication started by her PCP, Dr. Patiño in 2009. She has been seen in our clinic for interventional treatments and has provided intermittent doses of tramadol since Dr. Patiño has left practice. She returns today in followup visit requesting a refill of tramadol therapy. She is denying side effects of sleepiness, disorientation, confusion, mental slowing with the medication. She indicates no injury, no trauma or any changes in medical history except for the addition of Namenda and Aricept since our last visit. ALLERGIES: NONSTEROIDAL ANTI-INFLAMMATORIES, PENICILLIN, AMOXICILLIN. CURRENT MEDICATIONS: Hydrochlorothiazide 12.5 mg every other day, Namenda 10 mg once a day, Aricept 10 mg once a day, tramadol 50 mg 4 times a day p.r.n. pain, losartan 50 mg per day, folic acid with multivitamin 1 tab per day, albuterol 2 puffs q. 4 hours p.r.n., simvastatin 20 mg per day, sertraline 50 mg per day, Ranexa 500 mg once a day, omeprazole 20 mg per day, cholecalciferol 1000 units per day, omega-3 fish oil 1 tab per day, aspirin 81 mg per day, metformin 500 mg 3 times a day, Bystolic 5 mg once a day. SOCIAL HISTORY: The patient denies tobacco, alcohol, IV or illicit drug use. She is retired, retired years ago, accompanied by her daughter present in room today. IMAGING: No new imaging available. PQRS: The patient has arthritic changes of the cervical spine, lumbar spine, bilateral hips and knees. No rheumatoid arthritis. She is placing pain [address] [address] PAIN MANAGEMENT CONSULTATION Name: RACHEL TORRES Room #: REG CLI [facility].#: [id number] Admission: 09/25/19 Attend Phys: Raleigh Brothers DO Discharge: Date of : 37 Report #: [id number] intensity at 8/10. She is not a fall risk, has not had a fall in last 3 months. She is not on blood thinners, but is treated for hypertension. She is not on chronic opioids and has a low opiate addiction potential. Pain impact score of 70 indicating mild interference of daily activities secondary to pain. PHYSICAL EXAMINATION: VITAL SIGNS: Blood pressure 164/67, pulse 61, respiratory rate 20 and unlabored. The patient is 98% on room air. Height 5 feet 5 inches tall, weight 154 pounds, BMI calculated 25.6. GENERAL: Well-developed, well-nourished, well-hydrated 84-year-old female appearing stated age, placing current pain score at 8/10. HEENT: Normocephalic, atraumatic. Pupils equal, round, reactive to light. Speech fluent. EXTREMITIES: Show no clubbing, no cyanosis, no edema. MUSCULOSKELETAL: The patient has tenderness to the cervical area. No spinous process tenderness. There is palpatory tenderness noted throughout the paraspinal musculature of cervical spine. Multiple tender points, no trigger points. Spurling's test is negative. Cervical provocation testing including extension, rotation, lateral flexion and all met with moderate to severe restriction of motion and pain increase. ASSESSMENT: 1. Cervical spondylosis without radiculopathy. 2. Facet arthropathy of cervical spine. 3. Cervicalgia. 4. Pain medication dependence. 5. Chronic intractable pain. PLAN: 1. The patient returns today in followup visit requesting refill of tramadol therapy. The patient has been taking her tramadol appropriately and last prescription of the medication was given in February 2019. She has just recently run out of the medication. She returns today for refill of medications. Again, she is denying side effects of sleepiness, disorientation, confusion, mental slowing with use of therapy. We have cautioned the patient in regards to the medication in conjunction with her Namenda and Aricept. She needs to watch for increasing cognitive dysfunction. At present, she is stating she is having no current effects of such and feels medications are beneficial. 2. We have provided the patient with a prescription of tramadol 50 mg dose 1 tab p.o. q.i.d. p.r.n. pain. I have given the patient #120 tablets, releasing today with 1 refill, 2 months' worth of medication. We did discuss with the patient that this is a controlled substance and does require appointments to receive refills. There are no refills to be offered or provided over telephone request. We reviewed the fact that opiate medications are being used to provide analgesia [address] [address] PAIN MANAGEMENT CONSULTATION Name: MIGUELJANERACHEL Room #: REG CLSea Flores#: [id number] Admission: 09/25/19 Attend Phys: Raleigh Brothers DO Discharge: Date of : 37 Report #: [id number] adequate to support activities of daily living, not attempting to achieve a specific pain score on the 0-10 Visual Analog Scale. The current opiate medications are providing sufficient analgesia to allow the patient to participate in activities of daily living. The patient is not exhibiting any aberrant behavior suggestive of drug diversion. The patient is not having any adverse reactions to medications. The patient is not suffering from daytime somnolence or mental acuity changes. The patient is managing opiate-induced constipation with appropriate [id number] agents and dietary considerations. The patient was counseled on concern for caution with operating a motor vehicle while using opiate medications. A physical exam was performed and the patient's functional status was evaluated. All patients with back pain were advised against the bed rest greater than 4 days and were advised to return to normal activities. Pain score assessment was noted and the treatment plan was reviewed with the patient. All current medications, both prescribed and OTC were reviewed and reconciled on the electronic medical record. Tobacco screening was accomplished and smoking cessation was advised when indicated. BMI was noted and diet/exercise modification was recommended for all patients following outside normal parameters. I reviewed with the patient today their responsibilities to safeguard prescription medications, reviewed their responsibility to utilize medications only as prescribed by the physician. They are to seek and receive pain medications only from 1 physician group ( [facility]). They are to use 1 pharmacy and keep the clinic informed if they change pharmacies. Their responsibilities include making followup visits in a timely fashion and to avoid abrupt discontinuation of medication usage. Their responsibilities further include bringing their medications (bottles from the pharmacy with residual pills) to the visit for possible confirmation of pill counts and the patient understands it is their responsibility to submit to random drug screens to ensure both that the medications prescribed are present, and that no other controlled substances are present. All prescriptions provided today were generated electronically. We will see the patient back in followup visit in 2 months for medication management if she is taking the medication 4 times a day. If she is taking it less consistently as she has prior, we will see her back on an as needed basis. <ELECTRONICALLY SIGNED> By: Raleigh Brothers DO 09/26/19 [id number] Raleigh Brothers DO /nt
== END ==
LOC: PAIN 07:02
DX: M47.812 Spondylosis without myelopathy or radiculopathy, cervical region (principal); M12.88 Other specific arthropathies, not elsewhere classified, other specified site; G89.4 Chronic pain syndrome

== ENCOUNTER → 2020-01-08 | Outpatient (CLI) | payer OTHER, MEDICARE | LOC: SJCVCIMAG 12-03 14:42 | DX: I08.3 Combined rheumatic disorders of mitral, aortic and tricuspid valves (principal); I11.9 Hypertensive heart disease without heart failure; I44.0 Atrioventricular block, first degree; R00.1 Bradycardia, unspecified; E78.5 Hyperlipidemia, unspecified; E78.00 Pure hypercholesterolemia, unspecified; E11.9 Type 2 diabetes mellitus without complications ==

== ENCOUNTER → 2020-07-22 | Outpatient (CLI) | payer OTHER, MEDICARE | LOC: SJCVC 13:45 | PROVIDERS: ATTEND Internal Medicine Cardiovascular Disease | DX: I35.0 Nonrheumatic aortic (valve) stenosis (principal); I25.10 Atherosclerotic heart disease of native coronary artery without angina pectoris; I10 Essential (primary) hypertension; E78.00 Pure hypercholesterolemia, unspecified; E11.9 Type 2 diabetes mellitus without complications ==

== ENCOUNTER → 2021-02-24 | Outpatient (CLI) | payer OTHER, MEDICARE | LOC: SJCVCIMAG 08:17 | PROVIDERS: ATTEND Internal Medicine Cardiovascular Disease | DX: I08.3 Combined rheumatic disorders of mitral, aortic and tricuspid valves (principal); I11.9 Hypertensive heart disease without heart failure; R94.31 Abnormal electrocardiogram [ECG] [EKG]; I25.10 Atherosclerotic heart disease of native coronary artery without angina pectoris; E11.9 Type 2 diabetes mellitus without complications; E78.5 Hyperlipidemia, unspecified; E78.00 Pure hypercholesterolemia, unspecified; Z90.710 Acquired absence of both cervix and uterus; Z88.0 Allergy status to penicillin; Z88.8 Allergy status to other drugs, medicaments and biological substances; Z79.82 Long term (current) use of aspirin; Z79.84 Long term (current) use of oral hypoglycemic drugs; Z79.899 Other long term (current) drug therapy; Z87.891 Personal history of nicotine dependence; Z82.49 Family history of ischemic heart disease and other diseases of the circulatory system ==